=== PATIENT | male | born 1980 | race Caucasian/White ===

== ENCOUNTER 2021-03-28 21:31 | Emergency (ER) | payer SELFPAY ==
[2021-03-28] MEDS ORDERED: Sodium Chloride 0.9% 1,000 ML IV ONE (21:33)
[2021-03-28] MEDS ORDERED: Morphine 4 MG/ML VIAL IVPUSH ONE (22:35)
[2021-03-28] MEDS ORDERED: Lactated Ringers 1,000 ML IV STA (22:35)
[2021-03-28] MEDS ORDERED: Ondansetron 4 MG/2 ML SDV IVPUSH ONE (22:35)
[2021-03-28] MEDS ORDERED: Ketorolac 30 MG/ML SDV IVPUSH ONE ×2 (22:37→23:55)
[2021-03-28 23:07] LABS: BLOOD UREA NITROGEN,BUN 11 mg/dL (7.0-18.0); CARBON DIOXIDE,CO2 28.4 mmol/L (21.0-32.0); CHLORIDE,CL 102 mmol/L (98-107); GLUCOSE RANDOM 104 mg/dL (74-106); POTASSIUM,K 3.4 mmol/L (3.5-5.1); SODIUM,NA 139 mmol/L (136-148)
[2021-03-28] MEDS ORDERED: Tamsulosin 0.4 MG Cap.ER PO ONE (23:55)
[2021-03-29] MEDS ORDERED: Acetaminophen/HYDROcodone 325-5 MG Tab PO ONE (00:42)
== END 2021-03-29 00:55 | disposition home or self-care (01) ==
LOC: MW.ED 21:31
DX: N20.2 Calculus of kidney with calculus of ureter (principal); Z79.899 Other long term (current) drug therapy
CPT/HCPCS: 36415; 74176; 80053; 81001; 85025; 96374; 96375; 96376; 99284; A9270; J1885; J2270; J2405; J7120; 99283

== ENCOUNTER 2024-07-18 09:18 | Day surgery (SDC) | payer SELFPAY ==
[2024-07-18] MEDS: Lactated Ringers 1,000 ML IV SCH (10:07)
[2024-07-18] MEDS ORDERED: Lidocaine 2% 5 ML SDV ONE (10:14)
[2024-07-18] MEDS ORDERED: propofoL 500 MG/50 ML 50 ML ONE (10:14)
[2024-07-18] MEDS ORDERED: Propofol 200 MG/20 ML SDV ONE (11:34)
[2024-07-18] MEDS ORDERED: Lactated Ringers 1,000 ML IV SCH (12:00)
== END 2024-07-18 12:30 | disposition home or self-care (01) ==
LOC: MW.SDS 09:18
PROVIDERS: ATTEND Surgery
DX: Z12.11 Encounter for screening for malignant neoplasm of colon (principal); D12.5 Benign neoplasm of sigmoid colon; K22.10 Ulcer of esophagus without bleeding; K29.50 Unspecified chronic gastritis without bleeding; K57.30 Diverticulosis of large intestine without perforation or abscess without bleeding; K44.9 Diaphragmatic hernia without obstruction or gangrene; I10 Essential (primary) hypertension; Z79.899 Other long term (current) drug therapy
CPT/HCPCS: 00813; J2003; J2704; J7120